=== PATIENT | male | born 1945 | race Caucasian/White ===

== ENCOUNTER → 2019-07-30 | Outpatient (CLI) | payer OTHER ==
[~2019-07-30] MED LIST: APAP650 PO; ASPIRIN325 PO; COLACE100 MG PO; FISH OIL 1,001000 M2 PO; FLOMAX0.4 MG PO; FOLIC ACID1 MG PO; METAMUCIL PAC1 UDPKT PO; PERCOCET 7.5-31 EACH PO; PLAVIX 75 MG TA75 MG PO; VITAMIN B-12500 MCG PO; XARELTO10 MG PO
== END ==
LOC: M.RAD 11:35
DX: M53.3 Sacrococcygeal disorders, not elsewhere classified (principal); G89.29 Other chronic pain; K56.41 Fecal impaction